=== PATIENT | female | born 1925 | race Caucasian/White ===

== ENCOUNTER 2016-11-27 09:30 | Outpatient (CLI) | payer MEDICARE, OTHER ==
[2016-02-06 19:25] VITALS: BP 124/74
[2016-11-27 09:53] LABS: BASOPHILS % 0.4 (0.0-1.5); EOSINOPHILS % 0.5 % (0.0-6.8); MEAN CORPUSCULAR HEMOGLOBIN 23.8 pg (28.0-34.0); MONOCYTES # 0.3 # k/uL (0.0-0.9); MONOCYTES % 6.4 % (0.0-11.0); NEUTROPHILS # 2.9 # k/uL (1.4-7.7)
--- NOTE | 2016-11-27 14:37 | Diagnostic Imaging Report ---
[facility] [address] [facility].[address] [address] Report Submission Date: Nov 27, 2016 1:29:07 PM [employer] Patient Study Name: YUMIKO TORRES Date: Nov 27, 2016 9:52:49 AM [employer] Modality Type: CR Gender: F Description: CHEST : [birth year] Institution: [facility] Physician BUCK Chest, 2 view History: FEVER Findings: The heart size is normal. There is atherosclerosis of the aorta. The lungs are clear. There is no pleural effusion or pneumothorax identified. The osseous structures are normal. Impression: 1. No acute pulmonary disease. Electronically signed on Nov 27, 2016 1:29:07 PM [employer]ORAIL HELPER by: Saul COBURN
== END 2016-11-27 09:31 ==
LOC: LAB 09:30
PROVIDERS: ATTEND Family Medicine
DX: R50.9 Fever, unspecified (principal)
CPT/HCPCS: 36415; 71020; 85025; 87400